=== PATIENT | female | born 1945 | race Caucasian/White ===

== ENCOUNTER 2019-05-06 22:52 | Inpatient (IN) | payer MEDICARE, OTHER ==
[2019-05-06] MEDS: NICARDipine HCL 30 MG CAPSULE PO (23:32)
[2019-05-06 23:41] LABS: ADD MAN DIFF? NO
[2019-05-06 23:43] LABS: WHITE BLOOD COUNT 9.2 10^3/ul (4.8-10.8)
[2019-05-06 23:43] LABS: BASOPHIL # 0.1 10^3/ul (0.0-0.1); BASOPHILS % 0.5 % (0.0-2.0); EOSINOPHILS # 0.4 10^3/ul (0.0-0.5); HEMATOCRIT 35.5 % (37.0-47.0); HEMOGLOBIN 11.8 g/dl (12.0-16.0); LYMPHOCYTES # 1.8 10^3/ul (0.8-2.9); LYMPHOCYTES % 19.4 % (15.0-51.0); MEAN CORPUSCULAR HEMOGLOBIN 30.3 pg (29.0-33.0); MEAN CORPUSCULAR HGB CONC 33.2 g/dl (32.0-37.0); MEAN CORPUSCULAR VOLUME 91.3 fl (82.0-101.0); MEAN PLATELET VOLUME 11.2 fl (7.4-10.4); MONOCYTE # 0.8 10^3/ul (0.3-0.9); MONOCYTES % 8.5 % (0.0-11.0); NEUTROPHIL # 6.2 10^3/ul (1.6-7.5); NEUTROPHILS % 67.3 % (39.0-77.0); PLATELET COUNT 266 10^3/UL (140-415); RED BLOOD COUNT 3.89 10^6/ul (4.20-5.40); RED CELL DISTRIBUTION WIDTH 12.8 % (11.5-14.5)
[2019-05-07] LABS: ALANINE AMINOTRANSFERASE 16 IU/L (13-69); ALBUMIN 4.6 g/dl (3.3-4.9); ALBUMIN/GLOBULIN RATIO 1.43; ALKALINE PHOSPHATASE 71 IU/L (42-121); ANION GAP 17 (5-13); ASPARTATE AMINO TRANSFERASE 26 IU/L (15-46); BILIRUBIN,INDIRECT 0.3 mg/dl (0-1.1); BILIRUBIN,TOTAL 0.3 mg/dl (0.2-1.3); BLOOD UREA NITROGEN 32 mg/dl (7-20); CARBON DIOXIDE 24 mmol/L (21-31); CHLORIDE 103 mmol/L (97-110); CREATININE 1.44 mg/dl (0.44-1.00); GLUCOSE 146 mg/dl (70-220); LIPASE 134 U/L (23-300); POTASSIUM 4.3 mmol/L (3.5-5.1); SODIUM 144 mmol/L (135-144); TOTAL PROTEIN 7.8 g/dl (6.1-8.1)
[2019-05-07 00:12] LABS: B-TYPE NATRIURETIC PEPTIDE 2590 PG/ML (0-125); TROPONIN-I 0.027 ng/ml (0.000-0.120)
[2019-05-07 00:42] LABS: ADD UMIC YES; UR ASCORBIC ACID NEGATIVE (NEGATIVE); UR BACTERIA FEW /HPF (NONE SEEN); UR BILIRUBIN (Dip) NEGATIVE (NEGATIVE); UR BLOOD (Dip) NEGATIVE (NEGATIVE); UR CLARITY SLIGHTLY CLOUDY (CLEAR); UR COLOR YELLOW (YELLOW); UR GLUCOSE (Dip) NEGATIVE (NEGATIVE); UR KETONES (Dip) NEGATIVE (NEGATIVE); UR LEUKOCYTE ESTERASE (Dip) 1+ Leu/ul (NEGATIVE); UR NITRITE (Dip) NEGATIVE (NEGATIVE); UR RBC 2 /HPF (0-5); UR SPECIFIC GRAVITY (Dip) 1.009 (1.003-1.030); UR TOTAL PROTEIN (Dip) NEGATIVE (NEGATIVE); UR UROBILINOGEN (Dip) NEGATIVE (NEGATIVE); UR WBC 13 /HPF (0-5)
[2019-05-07] MEDS: CEFTRIAXONE 1 GM/50 ML (PMX) 50 ML IVPB (01:03)
[2019-05-07] MEDS: LORAZEPAM 0.5 MG TAB PO (01:03)
[2019-05-07] MEDS ORDERED: NITROGLYCERIN (SL) 0.4 MG TAB SL (01:30)
[2019-05-07] MEDS ORDERED: DOCUSATE SODIUM 100 MG CAP PO (01:30)
[2019-05-07] MEDS ORDERED: ONDANSETRON 4 MG INJ IV (01:30)
[2019-05-07] MEDS ORDERED: BISACODYL (EC) 5 MG TAB PO (01:30)
[2019-05-07] MEDS ORDERED: ACETAMINOPHEN 325 MG TAB PO (01:30)
[2019-05-07] MEDS ORDERED: NACL 0.9% 3 ML SYG IV (01:30)
[2019-05-07] MEDS: DILTIAZEM 25 MG INJ IV (01:34)
[2019-05-07] MEDS ORDERED: GLUCOSE GEL 15 GRAM TUBE PO ×2 (02:00)
[2019-05-07] MEDS ORDERED: GLUCAGON 1 MG INJ IM (02:00)
[2019-05-07] MEDS ORDERED: DEXTROSE 50% 50 ML SYRINGE IV ×2 (02:00)
[2019-05-07] MEDS: ACCU-CHEK XX (02:00)
[2019-05-07] MEDS ORDERED: GLUCOSE GEL 15 GRAM TUBE BUCCAL (02:00)
[2019-05-07] MEDS: MAGNESIUM SULFATE 2 GM/50 ML 50 ML IVPB (03:38)
[2019-05-07 06:02] LABS: ADD MAN DIFF? NO
[2019-05-07 06:08] LABS: BASOPHIL # 0.1 10^3/ul (0.0-0.1); BASOPHILS % 0.6 % (0.0-2.0); EOSINOPHILS # 0.2 10^3/ul (0.0-0.5); EOSINOPHILS % 3.1 % (0.0-7.0); HEMATOCRIT 34.2 % (37.0-47.0); HEMOGLOBIN 11.5 g/dl (12.0-16.0); LYMPHOCYTES # 2.1 10^3/ul (0.8-2.9); LYMPHOCYTES % 26.5 % (15.0-51.0); MEAN CORPUSCULAR HEMOGLOBIN 30.5 pg (29.0-33.0); MEAN CORPUSCULAR HGB CONC 33.6 g/dl (32.0-37.0); MEAN CORPUSCULAR VOLUME 90.7 fl (82.0-101.0); MEAN PLATELET VOLUME 11.8 fl (7.4-10.4); MONOCYTE # 0.8 10^3/ul (0.3-0.9); NEUTROPHIL # 4.6 10^3/ul (1.6-7.5); NEUTROPHILS % 59.5 % (39.0-77.0); PLATELET COUNT 243 10^3/UL (140-415); RED BLOOD COUNT 3.77 10^6/ul (4.20-5.40); RED CELL DISTRIBUTION WIDTH 12.7 % (11.5-14.5)
[2019-05-07 06:08] LABS: WHITE BLOOD COUNT 7.7 10^3/ul (4.8-10.8)
[2019-05-07 06:27] LABS: INR 0.94; PROTIME 12.7 Sec (11.9-14.9)
[2019-05-07 06:28] LABS: PARTIAL THROMBOPLASTIN TIME 27.5 Sec (23.0-35.0)
[2019-05-07 06:35] LABS: ALANINE AMINOTRANSFERASE 11 IU/L (13-69); ALBUMIN 4.5 g/dl (3.3-4.9); ALBUMIN/GLOBULIN RATIO 1.32; ALKALINE PHOSPHATASE 75 IU/L (42-121); ANION GAP 13 (5-13); ASPARTATE AMINO TRANSFERASE 37 IU/L (15-46); BILIRUBIN,INDIRECT 0.3 mg/dl (0-1.1); BILIRUBIN,TOTAL 0.3 mg/dl (0.2-1.3); BLOOD UREA NITROGEN 38 mg/dl (7-20); CALCIUM 9.6 mg/dl (8.4-10.2); CARBON DIOXIDE 25 mmol/L (21-31); CHLORIDE 104 mmol/L (97-110); CREATININE 1.22 mg/dl (0.44-1.00); GLUCOSE 104 mg/dl (70-220); MAGNESIUM 1.9 mg/dl (1.7-2.5); POTASSIUM 4.3 mmol/L (3.5-5.1); SODIUM 142 mmol/L (135-144); TOTAL PROTEIN 7.9 g/dl (6.1-8.1)
[2019-05-07] MEDS: INSULIN ASPART [NOVOLOG] 3 ML PEN SC ×4 (07:55→21:00)
[2019-05-07] MEDS: ASPIRIN 81 MG TAB PO (08:31)
[2019-05-07] MEDS ORDERED: METOPROLOL 5 MG INJ IV (09:30)
[2019-05-07] MEDS: AMLODIPINE 5 MG TAB PO (11:06)
[2019-05-07] MEDS: CITALOPRAM 20 MG TAB PO (11:06)
[2019-05-07] MEDS: BENZTROPINE 1 MG TAB PO (11:06)
[2019-05-07] MEDS: FOLIC ACID 1 MG TAB PO (11:06)
[2019-05-07] MEDS: FUROSEMIDE 40 MG TAB PO (11:07)
[2019-05-07] MEDS: ENOXAPARIN 80 MG/0.8 ML SYG SC ×2 (11:13→20:37)
[2019-05-07] MEDS: SOTALOL 80 MG TAB PO (20:42)
[2019-05-07] MEDS: DIPHENHYDRAMINE 50 MG CAP PO (22:00)
[2019-05-08] MEDS: CEFTRIAXONE 1 GM/50 ML (PMX) 50 ML IVPB (00:44)
[2019-05-08] MEDS: ACCU-CHEK XX (02:00)
[2019-05-08 07:02] LABS: ADD MAN DIFF? NO
[2019-05-08 07:05] LABS: WHITE BLOOD COUNT 5.9 10^3/ul (4.8-10.8)
[2019-05-08 07:05] LABS: BASOPHIL # 0.1 10^3/ul (0.0-0.1); BASOPHILS % 0.8 % (0.0-2.0); EOSINOPHILS # 0.4 10^3/ul (0.0-0.5); EOSINOPHILS % 7.5 % (0.0-7.0); HEMATOCRIT 33.7 % (37.0-47.0); HEMOGLOBIN 11.3 g/dl (12.0-16.0); LYMPHOCYTES # 1.7 10^3/ul (0.8-2.9); LYMPHOCYTES % 29.2 % (15.0-51.0); MEAN CORPUSCULAR HEMOGLOBIN 30.4 pg (29.0-33.0); MEAN CORPUSCULAR HGB CONC 33.5 g/dl (32.0-37.0); MEAN CORPUSCULAR VOLUME 90.6 fl (82.0-101.0); MEAN PLATELET VOLUME 11.2 fl (7.4-10.4); MONOCYTE # 0.6 10^3/ul (0.3-0.9); MONOCYTES % 10.7 % (0.0-11.0); NEUTROPHILS % 51.3 % (39.0-77.0); PLATELET COUNT 242 10^3/UL (140-415); RED BLOOD COUNT 3.72 10^6/ul (4.20-5.40); RED CELL DISTRIBUTION WIDTH 12.8 % (11.5-14.5)
[2019-05-08 07:26] LABS: HEMOGLOBIN A1C 5.1 % (0-5.9)
[2019-05-08 07:37] LABS: ALANINE AMINOTRANSFERASE 14 IU/L (13-69); ALBUMIN 4.2 g/dl (3.3-4.9); ALBUMIN/GLOBULIN RATIO 1.31; ALKALINE PHOSPHATASE 67 IU/L (42-121); ANION GAP 10 (5-13); ASPARTATE AMINO TRANSFERASE 27 IU/L (15-46); BILIRUBIN,INDIRECT 0.3 mg/dl (0-1.1); BILIRUBIN,TOTAL 0.3 mg/dl (0.2-1.3); BLOOD UREA NITROGEN 35 mg/dl (7-20); CALCIUM 9.5 mg/dl (8.4-10.2); CARBON DIOXIDE 28 mmol/L (21-31); CHLORIDE 105 mmol/L (97-110); CHOLESTEROL 158 mg/dl (100-200); CREATININE 1.26 mg/dl (0.44-1.00); GLUCOSE 109 mg/dl (70-220); HDL CHOLESTEROL 31 mg/dl (33-92); LDL CHOLESTEROL,CALCULATED 97 mg/dl; MAGNESIUM 1.8 mg/dl (1.7-2.5); POTASSIUM 3.5 mmol/L (3.5-5.1); SODIUM 143 mmol/L (135-144); TOTAL PROTEIN 7.4 g/dl (6.1-8.1); TRIGLYCERIDES 150 mg/dl (0-149)
[2019-05-08] MEDS: INSULIN ASPART [NOVOLOG] 3 ML PEN SC ×4 (07:48→21:00)
[2019-05-08] MEDS: ASPIRIN 81 MG TAB PO (08:22)
[2019-05-08] MEDS: FUROSEMIDE 40 MG TAB PO (08:23)
[2019-05-08] MEDS: ASPIRIN (EC) 81 MG TAB PO (08:23)
[2019-05-08] MEDS: CITALOPRAM 20 MG TAB PO (08:23)
[2019-05-08] MEDS: BENZTROPINE 1 MG TAB PO (08:23)
[2019-05-08] MEDS: ATORVASTATIN 40 MG TAB PO (08:24)
[2019-05-08] MEDS: FOLIC ACID 1 MG TAB PO (08:24)
[2019-05-08] MEDS: SOTALOL 80 MG TAB PO ×2 (08:24→20:26)
[2019-05-08] MEDS: AMLODIPINE 5 MG TAB PO ×2 (08:25→20:26)
[2019-05-08] MEDS: ENOXAPARIN 80 MG/0.8 ML SYG SC ×2 (08:29→20:32)
[2019-05-08] MEDS: POTASSIUM CHLORIDE (SR) 20 MEQ TAB PO (08:36)
[2019-05-08] MEDS: MAGNESIUM SULFATE 3 GM in DEXTROSE 5% 100 ML IVPB (09:19)
[2019-05-08] MEDS: hydrALAzine 20 MG INJ IV ×2 (15:54→20:33)
[2019-05-08] MEDS: DIPHENHYDRAMINE 50 MG CAP PO (21:00)
[2019-05-09] MEDS: ACCU-CHEK XX (01:19)
[2019-05-09 05:52] LABS: ADD MAN DIFF? NO
[2019-05-09 05:56] LABS: BASOPHIL # 0.1 10^3/ul (0.0-0.1); BASOPHILS % 0.7 % (0.0-2.0); EOSINOPHILS # 0.4 10^3/ul (0.0-0.5); EOSINOPHILS % 6.6 % (0.0-7.0); HEMATOCRIT 35.3 % (37.0-47.0); HEMOGLOBIN 12.1 g/dl (12.0-16.0); LYMPHOCYTES # 1.8 10^3/ul (0.8-2.9); LYMPHOCYTES % 26.8 % (15.0-51.0); MEAN CORPUSCULAR HEMOGLOBIN 30.8 pg (29.0-33.0); MEAN CORPUSCULAR HGB CONC 34.3 g/dl (32.0-37.0); MEAN CORPUSCULAR VOLUME 89.8 fl (82.0-101.0); MEAN PLATELET VOLUME 11.2 fl (7.4-10.4); MONOCYTE # 0.7 10^3/ul (0.3-0.9); MONOCYTES % 10.2 % (0.0-11.0); NEUTROPHIL # 3.7 10^3/ul (1.6-7.5); NEUTROPHILS % 55.4 % (39.0-77.0); PLATELET COUNT 258 10^3/UL (140-415); RED BLOOD COUNT 3.93 10^6/ul (4.20-5.40); RED CELL DISTRIBUTION WIDTH 12.9 % (11.5-14.5)
[2019-05-09 05:56] LABS: WHITE BLOOD COUNT 6.7 10^3/ul (4.8-10.8)
[2019-05-09] MEDS: LEVOFLOXACIN 500 MG TAB PO (06:17)
[2019-05-09 06:29] LABS: ALANINE AMINOTRANSFERASE 21 IU/L (13-69); ALBUMIN 4.1 g/dl (3.3-4.9); ALBUMIN/GLOBULIN RATIO 1.24; ALKALINE PHOSPHATASE 73 IU/L (42-121); ANION GAP 9 (5-13); ASPARTATE AMINO TRANSFERASE 26 IU/L (15-46); BILIRUBIN,INDIRECT 0.3 mg/dl (0-1.1); BILIRUBIN,TOTAL 0.3 mg/dl (0.2-1.3); BLOOD UREA NITROGEN 27 mg/dl (7-20); CALCIUM 9.4 mg/dl (8.4-10.2); CARBON DIOXIDE 28 mmol/L (21-31); CHLORIDE 105 mmol/L (97-110); CREATININE 1.07 mg/dl (0.44-1.00); GLUCOSE 116 mg/dl (70-220); POTASSIUM 3.6 mmol/L (3.5-5.1); SODIUM 142 mmol/L (135-144); TOTAL PROTEIN 7.4 g/dl (6.1-8.1)
[2019-05-09] MEDS: INSULIN ASPART [NOVOLOG] 3 ML PEN SC ×3 (07:55→17:50)
[2019-05-09] MEDS: ATORVASTATIN 40 MG TAB PO (09:18)
[2019-05-09] MEDS: AMLODIPINE 5 MG TAB PO (09:21)
[2019-05-09] MEDS: SOTALOL 80 MG TAB PO (09:21)
[2019-05-09] MEDS: CITALOPRAM 20 MG TAB PO (09:21)
[2019-05-09] MEDS: FUROSEMIDE 40 MG TAB PO (09:22)
[2019-05-09] MEDS: BENZTROPINE 1 MG TAB PO (09:22)
[2019-05-09] MEDS: LISINOPRIL 20 MG TAB PO (09:22)
[2019-05-09] MEDS: FOLIC ACID 1 MG TAB PO (09:22)
[2019-05-09] MEDS: ASPIRIN (EC) 81 MG TAB PO (09:23)
[2019-05-09] MEDS: ENOXAPARIN 80 MG/0.8 ML SYG SC (09:30)
== END 2019-05-09 19:54 | disposition home or self-care (01) | DRG 309 ==
LOC: E/R 22:52 → TEL 05-07 01:31
DX: I48.91 Unspecified atrial fibrillation (principal); N17.9 Acute kidney failure, unspecified; N39.0 Urinary tract infection, site not specified; E11.9 Type 2 diabetes mellitus without complications; Z95.1 Presence of aortocoronary bypass graft; E86.0 Dehydration; I95.1 Orthostatic hypotension; Z85.3 Personal history of malignant neoplasm of breast; E78.5 Hyperlipidemia, unspecified; F20.9 Schizophrenia, unspecified; Z95.2 Presence of prosthetic heart valve
CPT/HCPCS: 36415; 71045; 80053; 80061; 81001; 82962; 83036; 83690; 83735; 83880; 84443; 84484; 85025; 85610; 85730; 93005; 93306; 93880; 96374; 99285-25

== ENCOUNTER 2019-05-16 22:50 | Emergency (ER) | payer SELFPAY, OTHER, MEDICARE | END 2019-05-17 01:57 | disposition left against medical advice (07) | LOC: E/R 22:50 | DX: Z53.21 Procedure and treatment not carried out due to patient leaving prior to being seen by health care provider (principal) | CPT/HCPCS: 93005 ==